=== PATIENT | female | born 1945 | race Caucasian/White ===

== ENCOUNTER 2018-01-22 09:13 | Inpatient (IN) | payer MEDICARE, OTHER ==
[2018-01-22] MEDS ORDERED: LIDOCAINE 2% (SDV) 5 ML INJ (09:44)
[2018-01-22] MEDS ORDERED: NEOSTIGMINE 3 MG/3 ML SYRINGE (09:44)
[2018-01-22] MEDS ORDERED: GLYCOPYRROLATE 0.4 MG INJ (09:44)
[2018-01-22] MEDS ORDERED: PROPOFOL 20 ML (09:44)
[2018-01-22] MEDS ORDERED: ROCURONIUM 50 MG INJ (09:44)
[2018-01-22] MEDS ORDERED: MIDAZOLAM 1 MG/ML 2 ML INJ (09:44)
[2018-01-22] MEDS ORDERED: FENTAnyl 50 MCG/ML VIAL (09:45)
[2018-01-22] MEDS ORDERED: DEXAMETHASONE 4 MG/ML 1 ML INJ (09:48)
[2018-01-22] MEDS ORDERED: ONDANSETRON 4 MG INJ (09:55)
[2018-01-22] MEDS ORDERED: HEPARIN 1000 UNITS/ML 10 ML INJ (10:00)
[2018-01-22] MEDS ORDERED: GELATIN SIZE 100 SPONGE (10:00)
[2018-01-22] MEDS ORDERED: THROMBIN 5000 UNIT VIAL (10:00)
[2018-01-22] MEDS ORDERED: LIDOCAINE 1% (MPF) 30 ML INJ (10:00)
[2018-01-22] MEDS ORDERED: IOHEXOL 300MG/ML 30 ML BTL (10:01)
[2018-01-22] MEDS ORDERED: FENTAnyl 50 MCG/ML VIAL IV ×2 (11:30)
[2018-01-22] MEDS ORDERED: DIPHENHYDRAMINE 50 MG INJ IV (11:30)
[2018-01-22] MEDS ORDERED: ATROPINE 1 MG/10 ML SYRINGE IV (11:30)
[2018-01-22] MEDS ORDERED: ONDANSETRON 4 MG INJ IV (11:30)
[2018-01-22] MEDS ORDERED: EPHEDrine SULFATE 50 MG/5 ML SYG IV (11:30)
[2018-01-22] MEDS ORDERED: LABETALOL HCL 20MG INJ IV (11:30)
[2018-01-22] MEDS ORDERED: morphine (1 MG/ML) 10ML SYRINGE IV ×3 (11:30)
[2018-01-22] MEDS ORDERED: hydrALAzine 20 MG INJ IV (11:30)
[2018-01-22] MEDS ORDERED: OXYCODONE/ACETAMINOPHEN (5/325) TAB PO ×2 (11:30)
[2018-01-22] MEDS ORDERED: HYDROmorphONE 1 MG/5 ML IV SYRINGE IV ×3 (11:30)
[2018-01-22] MEDS ORDERED: MEPERIDINE 25 MG INJ IV (11:30)
[2018-01-22] MEDS ORDERED: MIDAZOLAM 1 MG/ML 2 ML INJ IV (11:30)
[2018-01-22] MEDS ORDERED: LACTATED RINGER'S 1,000 ML IV (12:00)
== END 2018-01-22 12:37 | disposition home or self-care (01) | DRG 68 ==
LOC: REC 09:13
PROVIDERS: Thoracic Surgery (Cardiothoracic Vascular Surgery)
DX: I65.23 Occlusion and stenosis of bilateral carotid arteries (principal); I10 Essential (primary) hypertension; Z95.1 Presence of aortocoronary bypass graft; E11.9 Type 2 diabetes mellitus without complications; E66.9 Obesity, unspecified; Z68.39 Body mass index [BMI] 39.0-39.9, adult; Z53.9 Procedure and treatment not carried out, unspecified reason
CPT/HCPCS: 82962